=== PATIENT | male | born 2000 | race Caucasian/White ===

== ENCOUNTER 2020-04-14 14:48 | Emergency (ER) | payer OTHER, SELFPAY ==
--- NOTE | 2020-04-14 16:41 | RAD REPORT ---
EXAM DESCRIPTION: RAD - Tib Fib Right - 04/14/2020 4:33 pm CLINICAL HISTORY: Right leg pain FINDINGS: No fracture is seen
--- NOTE | 2020-04-14 17:17 | EDPHYS ---
Physician Documentation [facility] Name: Monster Martel Age: 20 yrs Sex: Male : 2000 Arrival Date: 04/14/2020 Time: 14:53 Bed 6 Private MD: ED Physician Hieu Sen HPI: 04/14 16:17 This 20 yrs old Male presents to ER via Ambulatory with complaints of Fall pm1 Injury, Leg Pain. 16:17 Details of fall: The patient fell from an upright position, while running. Onset: The pm1 symptoms/episode began/occurred just prior to arrival. Associated injuries: The patient sustained right esquivel. Severity of symptoms: in the emergency department the symptoms are unchanged. The patient has not experienced similar symptoms in the past. The patient has not recently seen a physician. Patient running and tripped on the grating in the ground and hit his right leg against a trash can. No headache, head injury, neck pain, LOC, back pain. Patient able to walk after injury. Historical: - Allergies: 14:57 No Known Allergies; ll1 - PMHx: 14:57 hydrocele; ll1 - PSHx: 14:57 None; ll1 - Immunization history:: Flu vaccine is up to date. - Social history:: Smoking status: Patient denies any tobacco usage or history of. ROS: 16:17 Constitutional: Negative for fever, chills, and weight loss, Cardiovascular: Negative pm1 for chest pain, palpitations, and edema, Respiratory: Negative for shortness of breath, cough, wheezing, and pleuritic chest pain, Back: Negative for injury and pain. 16:17 Skin: Negative for injury, rash, and discoloration, Neuro: Negative for headache, weakness, numbness, tingling, and seizure. 16:17 MS/extremity: Positive for pain, of the right esquivel, Negative for decreased range of motion, deformity. Exam: 16:17 Constitutional: This is a well developed, well nourished patient who is awake, alert, pm1 and in no acute distress. Head/Face: Normocephalic, atraumatic. Neck: Trachea midline, no thyromegaly or masses palpated, and no cervical lymphadenopathy. Supple, full range of motion without nuchal rigidity, or vertebral point tenderness. No Meningismus. 16:17 Skin: Warm, dry with normal turgor. Normal color with no rashes, no lesions, and no evidence of cellulitis. 16:17 Cardiovascular: Exam negative for acute changes, Rate: normal, Rhythm: regular, Pulses: no pulse deficits are appreciated. 16:17 Respiratory: Exam negative for acute changes, respiratory distress, shortness of breath. 16:17 Musculoskeletal/extremity: Extremities: grossly normal except: noted in the right esquivel: tenderness, There is no evidence of laceration, puncture. 16:17 Neuro: Exam negative for acute changes, Orientation: is normal, Mentation: is normal, Motor: is normal, moves all fours. Vital Signs: 14:57 BP 129 / 72; Pulse 63; Resp 16; Temp 98.6; Pulse Ox 97% ; Weight 58.97 kg; Height 6 ft. ll1 0 in. (182.88 cm); Pain 7/10; 16:35 BP 126 / 76; Pulse 60; Resp 15; Pulse Ox 99% on R/A; hb 17:30 BP 122 / 70; Pulse 61; Resp 16; Pulse Ox 99% on R/A; hb 14:57 Body Mass Index 17.63 (58.97 kg, 182.88 cm) ll1 MDM: 16:17 Patient medically screened. pm1 17:13 Data reviewed: vital signs. Counseling: I had a detailed discussion with the patient pm1 and/or guardian regarding: the historical points, exam findings, and any diagnostic results supporting the discharge/admit diagnosis, radiology results, to return to the emergency department if symptoms worsen or persist or if there are any questions or concerns that arise at home. 04/14 15:48 Order name: Tib Fib Right XRAY pm1 04/14 16:42 Order name: RAD; Complete Time: 17:24 EDMS Administered Medications: No medications were administered Disposition: 04/14/20 17:16 Discharged to Home. Impression: Contusion of left lower leg, Fall on same level from slipping, tripping and stumbling with subsequent striking against object. - Condition is Stable. - Discharge Instructions: Contusion. - Medication Reconciliation Form, Thank You Letter, Antibiotic Education, Prescription Opioid Use, Work release form form. - Follow up: Emergency Department; When: As needed; Reason: Recheck today's complaints, Continuance of care, Re-evaluation by your physician. Follow up: Private Physician; When: As needed; Reason: Worsening of condition. - Problem is new. - Symptoms have improved. Addendum: 04/15/2020 18:30 Co-signature as Attending Physician, Hieu Sen MD. m a2 Signatures: Dispatcher [employer] EDMS Jose Martin Donaldson NP FURNITURE BUILDER pm1 Shraddha Carpenter RN RN Hieu Sen MD MD ma2 Rm Fajardo RN RN ll1 Corrections: (The following items were deleted from the chart) 04/14 17:52 17:16 04/14/2020 17:16 Discharged to Home. Impression: Contusion of left lower leg; hb Fall on same level from slipping, tripping and stumbling with subsequent striking against object. Condition is Stable. Forms are Medication Reconciliation Form, Thank You Letter, Antibiotic Education, Prescription Opioid Use. Follow up: Emergency Department; When: As needed; Reason: Recheck today's complaints, Continuance of care, Re-evaluation by your physician. Follow up: Private Physician; When: As needed; Reason: Worsening of condition. Problem is new. Symptoms have improved. pm1
--- NOTE | 2020-04-14 17:17 | ER ---
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 Rolled over trash can ll1 and hit R leg on ground. Reports entire R leg pain now. Coronavirus screen: Client denies travel out of the [place] in the last 14 days. At this time, the client does not indicate any symptoms associated with coronavirus-19. Ebola Screen: Patient denies travel to an Ebola-affected area in the 21 days before illness onset. Initial Sepsis Screen: Does the patient meet any 2 criteria? No. Patient's initial sepsis screen is negative. Does the patient have a suspected source of infection? Yes: Bone or joint infection. Risk Assessment: Do you want to hurt yourself or someone else? Patient reports no desire to harm self or others. Onset of symptoms was April 14, 2020. 14:57 Method Of Arrival: Ambulatory ll1 14:57 Acuity: SOL 4 ll1 Historical: - Allergies: 14:57 No Known Allergies; ll1 - PMHx: 14:57 hydrocele; ll1 - PSHx: 14:57 None; ll1 - Immunization history:: Flu vaccine is up to date. - Social history:: Smoking status: Patient denies any tobacco usage or history of. Screenin:15 Abuse screen: Denies threats or abuse. Denies injuries from another. Nutritional sv screening: No deficits noted. Tuberculosis screening: No symptoms or risk factors identified. Fall Risk None identified. Assessment: 15:15 General: Appears in no apparent distress. uncomfortable, well developed, Behavior is sv calm, cooperative, appropriate for age. Pain: Complains of pain in right leg Pain currently is 7 out of 10 on a pain scale. Pain began 30 min ago. Is continuous. Neuro: Level of Consciousness is awake, alert, obeys commands, Oriented to person, place, time, situation. Respiratory: Respiratory effort is even, unlabored, Respiratory pattern is regular, symmetrical. Derm: Skin is pink, warm \T\ dry. 16:30 Reassessment: Patient appears in no apparent distress at this time. Patient and/or hb family updated on plan of care and expected duration. Pain level reassessed. Patient is alert, oriented x 3, equal unlabored respirations, skin warm/dry/pink. 17:35 Reassessment: Patient appears in no apparent distress at this time. Patient and/or hb family updated on plan of care and expected duration. Pain level reassessed. Patient is alert, oriented x 3, equal unlabored respirations, skin warm/dry/pink. Vital Signs: 14:57 BP 129 / 72; Pulse 63; Resp 16; Temp 98.6; Pulse Ox 97% ; Weight 58.97 kg; Height 6 ft. ll1 0 in. (182.88 cm); Pain 7/10; 16:35 BP 126 / 76; Pulse 60; Resp 15; Pulse Ox 99% on R/A; hb 17:30 BP 122 / 70; Pulse 61; Resp 16; Pulse Ox 99% on R/A; hb 14:57 Body Mass Index 17.63 (58.97 kg, 182.88 cm) ll1 ED Course: 14:53 Patient arrived in ED. mr 14:59 Triage completed. ll1 14:59 Arm band placed on Patient placed in an exam room, on a stretcher. ll1 15:08 Jose Martin Donaldson NP is PHCP. pm1 15:08 Hieu Sen MD is Attending Physician. pm1 15:08 Jelly Reyna, RN is Primary Nurse. sv 15:15 Patient has correct armband on for positive identification. Bed in low position. Call sv light in reach. Door closed. Head of bed elevated. 16:59 Tib Fib Right XRAY Sent. sv 17:51 No provider procedures requiring assistance completed. Patient did not have IV access hb during this emergency room visit. Administered Medications: No medications were administered Outcome: 17:16 Discharge ordered by . pm1 17:51 Discharged to home ambulatory. hb 17:51 Condition: stable 17:51 Discharge instructions given to patient, Instructed on discharge instructions, follow up and referral plans. medication usage, Demonstrated understanding of instructions, follow-up care, medications. 17:52 Patient left the ED. hb Signatures: Jelly Reyna RN RN sv [place], Ayah mr Anika, Jose Martin, VIGOUREUX PRINTER VIGOUREUX PRINTER pm1 Shraddha Carpenter, RN RN Rm Meléndez, OLIVER RN ll1
[2020-04-14 17:56] VITALS: TEMP 98.6
[2020-04-14 17:58] VITALS: O2SAT 99
[2020-04-14 17:59] VITALS: BP 122/70
== END 2020-04-14 17:52 | disposition home or self-care (01) ==
LOC: ER 14:48
DX: S80.11XA Contusion of right lower leg, initial encounter (principal); W01.198A Fall on same level from slipping, tripping and stumbling with subsequent striking against other object, initial encounter; Y93.89 Activity, other specified; Y92.9 Unspecified place or not applicable
CPT/HCPCS: 99283

== ENCOUNTER → 2023-03-31 | Emergency (ER) | payer OTHER ==
--- NOTE | 2023-03-31 19:12 | RAD REPORT ---
EXAM DESCRIPTION: US - Extremity Venous Uni Ltd - 03/31/2023 7:01 pm CLINICAL HISTORY: PAIN Leg swelling and edema. COMPARISON: No comparisons FINDINGS: Left lower extremity venous system was interrogated with Doppler technique. Normal flow, c ompressibility and augmentation was noted. There is no DVT present. IMPRESSION: No evidence of left lower extremity deep venous thrombosis.
--- NOTE | 2023-03-31 19:42 | ER ---
Nurse's Notes [facility] Name: Monster Martel Age: 23 yrs Sex: Male : 2000 Arrival Date: 03/31/2023 Time: 18:15 Bed IW9 Private MD: Diagnosis: Pain in left leg Presentation: 03/31 18:57 Chief complaint: Patient states: left leg pain that started last night , denies injury. iw Coronavirus screen: At this time, the client does not indicate any symptoms associated with coronavirus-19. Ebola Screen: Patient negative for fever greater than or equal to 101.5 degrees Fahrenheit, and additional compatible Ebola Virus Disease symptoms Patient denies exposure to infectious person. Patient denies travel to an Ebola-affected area in the 21 days before illness onset. No symptoms or risks identified at this time. Initial Sepsis Screen: Does the patient meet any 2 criteria? No. Patient's initial sepsis screen is negative. Does the patient have a suspected source of infection? No. Patient's initial sepsis screen is negative. Risk Assessment: Do you want to hurt yourself or someone else? Patient reports no desire to harm self or others. 18:57 Acuity: SOL 4 iw 19:17 Onset of symptoms was March 30, 2023. [facility] 19:17 Method Of Arrival: Ambulatory [facility] Triage Assessment: 19:17 General: Appears in no apparent distress. comfortable, Behavior is calm, cooperative, km8 appropriate for age. Pain: Complains of pain in left leg Pain currently is 8 out of 10 on a pain scale. EENT: No signs and/or symptoms were reported regarding the EENT system. Neuro: Level of Consciousness is awake, alert, obeys commands, Oriented to person, place, time, situation. Cardiovascular: Reports chest pain, shortness of breath, Capillary refill < 3 seconds Patient's skin is warm and dry. Respiratory: Airway is patent Respiratory effort is even, unlabored, Respiratory pattern is regular, symmetrical. GI: No signs and/or symptoms were reported involving the gastrointestinal system. : No signs and/or symptoms were reported regarding the genitourinary system. Derm: No signs and/or symptoms reported regarding the dermatologic system. Skin is intact, is healthy with good turgor, Skin is dry, Skin is pink, warm \T\ dry. normal, Skin temperature is warm. Musculoskeletal: Circulation, motion, and sensation intact. Range of motion: intact in all extremities, Reports pain in left leg Pain is 8 out of 10 on a pain scale. Historical: - Allergies: 18:59 No Known Allergies; iw - Home Meds: 18:59 None [Active]; iw - PMHx: 18:58 HYDROCELE; iw - PSHx: 18:59 None; iw - Immunization history:: Client reports receiving the 2nd dose of the Covid vaccine, Client reports receiving the Guy \T\ Guy single-dose vaccine. Flu vaccine is up to date. - Social history:: Smoking status: Patient denies any tobacco usage or history of. Patient/guardian denies using alcohol, street drugs. Screenin:15 [facility] ED Fall Risk Assessment (Adult) History of falling in the last 3 months, vc1 including since admission No falls in past 3 months (0 pts) Confusion or Disorientation No (0 pts) Intoxicated or Sedated No (0 pts) Impaired Gait No (0 pts) Mobility Assist Device Used No (0 pt) Altered Elimination No (0 pt) Score/Fall Risk Level 0 - 2 = Low Risk Oriented to surroundings, Maintained a safe environment, Educated pt \T\ family on fall prevention, incl call for assistance when getting out of bed. Abuse screen: Denies threats or abuse. Nutritional screening: No deficits noted. Tuberculosis screening: No symptoms or risk factors identified. Assessment: 20:15 Reassessment: No changes from previously documented assessment. Patient and/or family vc1 updated on plan of care and expected duration. Pain level reassessed. Patient is alert, oriented x 3, equal unlabored respirations, skin warm/dry/pink. Vital Signs: 19:16 BP 121 / 78; Pulse 69; Resp 16; Temp 98.5(O); Pulse Ox 100% on R/A; Weight 67.59 kg km8 (R); Height 5 ft. 11 in. (R); Pain 8/10; 19:16 Body Mass Index 20.78 (67.59 kg, 180.34 cm) km8 19:16 Pain Scale: Adult km8 ED Course: 18:16 Patient arrived in ED. rg4 18:20 Argelia Booth FNP-C is [facility]. kb 18:20 Nj Jimenez MD is Attending Physician. kb 18:58 Triage completed. iw 18:59 Arm band placed on. iw 19:03 US Extremity Venous Unilateral Ltd In Process Unspecified. EDMS 20:16 Patient has correct armband on for positive identification. placed in diagnostic chair vc1 for discharge. Provided Education on: Follow up if pain continues or worsens. 20:16 No provider procedures requiring assistance completed. Patient did not have IV access vc1 during this emergency room visit. Administered Medications: No medications were administered Medication: 20:16 VIS not applicable for this client. vc1 Outcome: 19:41 Discharge ordered by . kb 20:16 Discharged to home ambulatory, vc1 20:16 Condition: good 20:16 Discharge instructions given to patient, Instructed on discharge instructions, follow up and referral plans. medication usage, Demonstrated understanding of instructions, follow-up care, medications, Prescriptions given X 2, 20:17 Patient left the ED. vc1 Signatures: Dispatcher [employer] EDMS Argelia Booth, POULTRY SCIENTIST-C POULTRY SCIENTIST-CkLuz Elena Napoles, RN RN Aminah Ramesh rg4 Lisa Lopez RN RN vc1 Reema Zabala RN RN km8
--- NOTE | 2023-03-31 19:42 | EDPHYS ---
Physician Documentation [facility] Name: Monster Martel Age: 23 yrs Sex: Male : 2000 Arrival Date: 03/31/2023 Time: 18:15 Bed IW9 Private MD: ED Physician Nj Jimenez HPI: 03/31 19:48 This 23 yrs old Male presents to ER via Ambulatory with complaints of Leg Pain. kb 19:48 Patient reports left lateral leg pain that started overnight. Denies injury or trauma. kb States his family has a history of DVTs so he was concerned about a blood clot. Reports pain is from about mid thigh to just above ankle.. Historical: - Allergies: 18:59 No Known Allergies; iw - Home Meds: 18:59 None [Active]; iw - PMHx: 18:58 HYDROCELE; iw - PSHx: 18:59 None; iw - Immunization history:: Client reports receiving the 2nd dose of the Covid vaccine, Client reports receiving the Guy \T\ Guy single-dose vaccine. Flu vaccine is up to date. - Social history:: Smoking status: Patient denies any tobacco usage or history of. Patient/guardian denies using alcohol, street drugs. ROS: 19:47 Constitutional: Negative for fever, chills, and weight loss, kb 19:47 MS/extremity: Positive for pain, of the left leg, 19:47 All other systems are negative, Exam: 19:47 Constitutional: This is a well developed, well nourished patient who is awake, alert, kb and in no acute distress. Head/Face: Normocephalic, atraumatic. ENT: Moist Mucous membranes Cardiovascular: Regular rate Respiratory: Respirations even and unlabored. No increased work of breathing. Talking in full sentences Abdomen/GI: Soft, non-tender. No distention Skin: Warm, dry with normal turgor. Normal color. MS/ Extremity: Pulses equal, no cyanosis. Neurovascular intact. Full, normal range of motion. Neuro: Awake and alert, GCS 15, oriented to person, place, time, and situation. Moves all extremities. Normal gait. Vital Signs: 19:16 BP 121 / 78; Pulse 69; Resp 16; Temp 98.5(O); Pulse Ox 100% on R/A; Weight 67.59 kg km8 (R); Height 5 ft. 11 in. (R); Pain 810; 19:16 Body Mass Index 20.78 (67.59 kg, 180.34 cm) [facility] 19:16 Pain Scale: Adult km8 MDM: 18:27 Patient medically screened. kb 19:49 Differential diagnosis: abrasion, tendonitis, dvt. Data reviewed: vital signs, nurses kb notes. Counseling: I had a detailed discussion with the patient and/or guardian regarding the historical points, exam findings, and any diagnostic results supporting the discharge/admit diagnosis, radiology results, the need for outpatient follow up, a family practitioner, to return to the emergency department if symptoms worsen or persist or if there are any questions or concerns that arise at home. 03/31 18:34 Order name: US Extremity Venous Unilateral Ltd; Complete Time: 19:14 kb Administered Medications: No medications were administered Disposition Summary: 03/31/23 19:41 Discharge Ordered Notes: Location: Home kb Condition: Stable kb Diagnosis - Pain in left leg kb Followup: kb - With: Emergency Department - When: As needed - Reason: Worsening of condition Followup: kb - With: Private Physician - When: 2 - 3 days - Reason: Recheck today's complaints, Continuance of care, Re-evaluation by your physician Discharge Instructions: - Discharge Summary Sheet kb - Musculoskeletal Pain kb Forms: - Medication Reconciliation Form kb - Thank You Letter kb - Antibiotic Education kb - Prescription Opioid Use kb - Patient Portal Instructions kb - Leadership Thank You Letter kb Prescriptions: - Ibuprofen 600 mg Oral Tablet - take 1 tablet ORAL route every 6 hours As needed take with food; 30 tablet; kb Refills: 0, Product Selection Permitted - orphenadrine citrate 100 mg Oral Tablet Sustained Release - take 1 tablet ORAL route 2 times per day As needed; 20 tablet; Refills: 0, kb Product Selection Permitted Signatures: Dispatcher [employer] Argelia Rhodes, KIMBERLY GAY-Luz Elena De León, OLIVER RN Reema Zabala RN RN km8
[2023-04-01 00:27] VITALS: BP 121/78; TEMP 98.5; O2SAT 100
== END ==
LOC: ER 18:15
DX: M79.605 Pain in left leg (principal)
CPT/HCPCS: 93971

== ENCOUNTER 2023-10-20 20:01 | Emergency (ER) | payer OTHER ==
[2023-10-20] MEDS ORDERED: NA CHLORIDE 0.9% 1,000 ML ONE (21:34)
[2023-10-20 21:58] LABS: Absolute Eosinophils 0.1 K/uL (0-0.5); Absolute Lymphocytes (CBC) 1.4 K/uL (0.7-4.9); Absolute Monocytes 0.6 K/uL (0.1-1.3); Absolute Neutrophil 4.5 K/uL (1.8-8.0); Basophils % 0.7 % (0-1.3); Eosinophils % 1.5 % (0-4.4); Hematocrit 44.8 % (39.6-49.0); Hemoglobin 15.3 g/dL (13.6-17.9); Lymphocytes % 21.2 % (15.3-44.8); MCH 28.1 pg (27.0-35.0); MCHC 34.1 g/dL (32.0-36.0); MCV 82.4 fL (80-100); MPV 8.1 fL (7.6-11.3); Monocytes % 9.2 % (3.3-12.3); Neutrophils % 67.4 % (41.7-73.7); Nucleated Red Blood Cells % 0.2 % (0-0); Platelets 227 thou/uL (152-406); RBC Red Blood Cell Count 5.43 M/uL (4.33-5.43); Red Cell Distribution Width 12.4 % (12.1-15.2)
[2023-10-20 22:36] LABS: Albumin 4.3 g/dL (3.4-5.0); Albumin/Globulin Ratio 1.1 (1.1-1.8); Anion Gap 7.1 mEq/L (5.0-15.0); Bilirubin Direct 0.2 mg/dL (0-0.2); Bilirubin Indirect, Calculated 0.5 mg/dL (0.2-0.8); Bilirubin Total 0.7 mg/dL (0.2-1.0); Globulin 3.8 g/dL (2.3-3.5); Magnesium 2.3 mg/dL (1.6-2.4); Potassium 4.1 mEq/L (3.5-5.1); Protein, Total 8.1 g/dL (6.4-8.2); Troponin High Sensitivity 3.7 pg/mL (<58.9)
--- NOTE | 2023-10-20 23:09 | ER ---
Nurse's Notes [facility] Name: Monster Martel Age: 23 yrs Sex: Male : 2000 Arrival Date: 10/20/2023 Time: 20:01 Bed 15 Private MD: Diagnosis: Syncope Near Presentation: 10/19 20:45 Chief complaint: Patient states: Was on a roof approximately 45 minutes [employer] and fell. cm10 Pt states that he caught the ladder so he did not land on the ground. Pt complaining of head pain, dizziness and nausea. Coronavirus screen: Client denies travel out of the [place] in the last 14 days. At this time, the client does not indicate any symptoms associated with coronavirus-19. Ebola Screen: Patient denies travel to an Ebola-affected area in the 21 days before illness onset. No symptoms or risks identified at this time. Initial Sepsis Screen: Does the patient meet any 2 criteria? No. Patient's initial sepsis screen is negative. Does the patient have a suspected source of infection? No. Patient's initial sepsis screen is negative. Risk Assessment: Do you want to hurt yourself or someone else? Patient reports no desire to harm self or others. Onset of symptoms was October 20, 2023. 20:45 Method Of Arrival: Ambulatory cm10 20:45 Acuity: SOL 3 cm10 22:30 Care prior to arrival: None. al5 Triage Assessment: 20:47 General: Appears in no apparent distress. comfortable, Behavior is calm, cooperative. cm10 Pain: Complains of pain in head Pain currently is 8 out of 10 on a pain scale. Quality of pain is described as aching, Is intermittent. Neuro: No deficits noted. Level of Consciousness is awake, alert, obeys commands, Oriented to person, place, time, situation, Appropriate for age. Neuro: Reports dizziness, headache. Respiratory: No deficits noted. Airway is patent Respiratory effort is even, unlabored, Respiratory pattern is regular, symmetrical. Historical: - Allergies: 20:47 No Known Allergies; cm10 - PMHx: 20:47 HYDROCELE; cm10 - Immunization history:: Adult Immunizations up to date. - Infectious Disease History:: Denies. - Immunization history: Last tetanus immunization: - up to date. - Social history:: Smoking status: Patient denies any tobacco usage or history of. Screenin:[address] [facility] ED Fall Risk Assessment (Adult) History of falling in the last 3 months, al5 including since admission No falls in past 3 months (0 pts) Confusion or Disorientation No (0 pts) Intoxicated or Sedated No (0 pts) Impaired Gait No (0 pts) Mobility Assist Device Used No (0 pt) Altered Elimination No (0 pt) Score/Fall Risk Level 0 - 2 = Low Risk Oriented to surroundings, Maintained a safe environment, Hourly rounding (assess needs \T\ fall precautionary measures) done. Abuse screen: Denies threats or abuse. Denies injuries from another. Nutritional screening: No deficits noted. Tuberculosis screening: No symptoms or risk factors identified. Primary Survey: 21:10 NO uncontrolled hemorrhage observed. Breathing/Chest: Spontaneous respiratory effort, al5 equal unlabored respirations, breath sounds clear bilaterally, regular pattern, symmetrical chest rise and fall. Respiratory effort: spontaneous, Respiratory pattern: regular, Chest inspection: symmetrical rise and fall of the chest. Circulation: No external hemorrhage present. Regular and strong central pulse, skin warm/dry/normal color. Skin color: pink, Skin temperature: warm, Cardiac rhythm: sinus rhythm. Disability Pupils are equal, round, reactive to light and accommodation. Client is alert. Exposure/Environment: A warming method has been applied: A warm blanket has been provided to the patient. 22:29 Reassessment Breathing: Spontaneous respiratory effort, equal unlabored respirations, al5 breath sounds clear bilaterally, regular pattern with symmetrical chest rise and fall. Respiratory effort Spontaneous Respiratory pattern Regular Circulation: No external hemorrhage noted. Regular and strong central pulse, skin warm/dry/normal color. Heart rhythm Sinus rhythm Color [place] Disability: Pupils Pupils are equal, round, reactive to light and accomodation. Alert. Secondary Survey: 21:10 HEENT: No deficits noted. Gastrointestinal: No deficits noted. : No deficits noted. al5 Musculoskeletal: No deficits noted. Assessment: 21:10 General: Appears in no apparent distress. comfortable, Behavior is calm, cooperative. al5 Pain: Denies pain. Neuro: No deficits noted. Level of Consciousness is awake, alert, obeys commands, Oriented to person, place, time, situation. Neuro: Reports that he had a near syncopal episode this afternoon while on a ladder, denies any symptoms at this time.. Cardiovascular: Capillary refill < 3 seconds Patient's skin is warm and dry. Respiratory: Airway is patent Respiratory effort is even, unlabored, Respiratory pattern is regular, symmetrical. GI: No signs and/or symptoms were reported involving the gastrointestinal system. Abdomen is flat, non-distended. : No signs and/or symptoms were reported regarding the genitourinary system. EENT: No signs and/or symptoms were reported regarding the EENT system. Derm: Skin is intact, Skin is pink, warm \T\ dry. normal. Musculoskeletal: No signs and/or symptoms reported regarding the musculoskeletal system. Vital Signs: 20:45 BP 132 / 68; Pulse 76; Resp 16; Temp 97.4(TE); Pulse Ox 99% ; Weight 68.04 kg; Height 5 cm10 ft. 11 in. ; Pain 7/10; 21:19 BP 117 / 96; Pulse 68; Resp 16; Pulse Ox 100% on R/A; al5 21:30 BP 122 / 82; Pulse 78; Resp 16; Pulse Ox 100% on R/A; al5 21:45 BP 125 / 81; Pulse 66; Resp 16; Pulse Ox 100% on R/A; al5 22:00 BP 123 / 83; Pulse 68; Resp 16; Pulse Ox 100% on R/A; al5 22:30 BP 115 / 72; Pulse 62; Resp 16; Pulse Ox 100% on R/A; al5 23:00 BP 113 / 70; Pulse 64; Resp 16; Pulse Ox 100% on R/A; al5 20:45 Body Mass Index 20.92 (68.04 kg, 180.34 cm) cm10 20:45 Pain Scale: Adult cm10 Erika Coma Score: 21:11 Eye Response: spontaneous(4). Motor Response: obeys commands(6). Verbal Response: al5 oriented(5). Total: 15. Trauma Score (Adult): 21:11 Eye Response: spontaneous(1); Verbal Response: oriented(1); Motor Response: obeys al5 commands(2); Systolic BP: > 89 mm Hg(4); Respiratory Rate: 10 to 29 per min(4); [place] Score: 15; Trauma Score: 12 ED Course: 20:18 Patient arrived in ED. mr 20:25 Argelia Booth FNP-C is [facility]. kb 20:25 Janine Rosas MD is Attending Physician. kb 20:46 Triage completed. cm10 20:48 Arm band placed on Patient placed in waiting room. cm10 21:10 Patient has correct armband on for positive identification. Bed in low position. Call al5 light in reach. Side rails up X 1. 21:10 Provided Education on: processes and procedures. al5 21:35 Maryuri Hernandes, RN is Primary Nurse. al5 21:45 EKG done, by ED staff, reviewed by Argelia HARRIS. oe 21:47 Inserted saline lock: 20 gauge in right antecubital area, using aseptic technique. oe Blood collected. Flushed with 10 mL NS. 22:29 No provider procedures requiring assistance completed. al5 22:30 O2 via room air. al5 22:31 Thermoregulation: warm blanket given to patient. al5 23:36 IV discontinued, intact, bleeding controlled, No redness/swelling at site. Pressure al5 dressing applied. Administered Medications: 21:52 Drug: NS 0.9% IV 1000 ml IV at 1000 ml once Route: IV; Rate: 1000 ml; Site: right al5 antecubital; 23:36 Follow up: Response: No adverse reaction; IV Status: Completed infusion; IV Intake: al5 1000ml Medication: 22:30 VIS not applicable for this client. al5 Intake: 23:36 IV: 1000ml; Total: 1000ml. al5 Outcome: 23:09 Discharge ordered by . kb 23:36 Discharged to home ambulatory, al5 23:36 Condition: good 23:36 Discharge instructions given to patient, Instructed on discharge instructions, follow up and referral plans. Demonstrated understanding of instructions, follow-up care, 23:36 Patient's length of stay was not longer than 2 hours. 23:37 Patient left the ED. al5 Signatures: Argelia Booth FNP-C PROJECT MANAGEMENT DIRECTOR-Ckb MadisonAyah, Reg Reg mr Ortiz, Olimpia Thapa RN RN cm10 Maryuri Hernandes, OLIVER RN al5 Corrections: (The following items were deleted from the chart) 20:51 20:45 Chief complaint: Patient states: Fell off a roof today. Pt states that he caught cm10 the ladder so he did not land on the ground. Pt complaining of head pain, dizziness and nausea. cm10 21:48 21:47 Inserted oe oe : 22:25 General: Appears in no apparent distress. comfortable, Behavior is calm, al5 cooperative, al5 22:25 Pain: Denies pain. al5 al5 : 22:25 Neuro: Level of Consciousness is awake, alert, obeys commands, Oriented to al5 person, place, time, situation, al5 : 22:25 Cardiovascular: Capillary refill < 3 seconds Patient's skin is warm and dry. al5 al5 : 22:25 Respiratory: Airway is patent Respiratory effort is even, unlabored, Respiratory al5 pattern is regular, symmetrical, al5 : 22:25 GI: No signs and/or symptoms were reported involving the gastrointestinal system. al5 Abdomen is flat, non-distended, al5 22:25 : No signs and/or symptoms were reported regarding the genitourinary system. al5al5 : 22:25 EENT: No signs and/or symptoms were reported regarding the EENT system. al5 al5 : 22:25 Derm: Skin is intact, Skin is pink, warm \T\ dry. normal, al5 al5 : 22:25 Musculoskeletal: No signs and/or symptoms reported regarding the musculoskeletal al5 system. al5
--- NOTE | 2023-10-20 23:09 | EDPHYS ---
Physician Documentation [facility] Name: Monster Martel Age: 23 yrs Sex: Male : 2000 Arrival Date: 10/20/2023 Time: 20:01 Bed 15 Private MD: ED Physician Janine Rosas HPI: 10/19 23:05 This 23 yrs old Male presents to ER via Ambulatory with complaints of Fall Injury, kb Dizziness, Nausea. 23:05 Patient is a 23-year-old male who presents for near syncopal episode that occurred kb about 45 minutes prior to arrival. States he was on top of a roof doing an inspection when his vision went dark causing him to fall on the roof. Denies falling off of the roof. Denies any injuries. States he has been working outside all day and has not drink any water. States he is feeling better at this time.. Historical: - Allergies: 20:47 No Known Allergies; cm10 - PMHx: 20:47 HYDROCELE; cm10 - Immunization history:: Adult Immunizations up to date. - Infectious Disease History:: Denies. - Immunization history: Last tetanus immunization: - up to date. - Social history:: Smoking status: Patient denies any tobacco usage or history of. ROS: 21:42 Constitutional: As per HPI kb Exam: 21:42 Constitutional: This is a well developed, well nourished patient who is awake, alert, kb and in no acute distress. Head/Face: Normocephalic, atraumatic. ENT: Moist Mucous membranes Cardiovascular: Regular rate Respiratory: Respirations even and unlabored. No increased work of breathing. Talking in full sentences Abdomen/GI: Soft, non-tender. No distention Skin: Warm, dry with normal turgor. Normal color. MS/ Extremity: Pulses equal, no cyanosis. Neurovascular intact. Full, normal range of motion. Neuro: Awake and alert, GCS 15, oriented to person, place, time, and situation. Moves all extremities. Normal gait. 21:42 ECG was reviewed by the Attending Physician. Vital Signs: 20:45 BP 132 / 68; Pulse 76; Resp 16; Temp 97.4(TE); Pulse Ox 99% ; Weight 68.04 kg; Height 5 cm10 ft. 11 in. ; Pain 7/10; 21:19 BP 117 / 96; Pulse 68; Resp 16; Pulse Ox 100% on R/A; al5 21:30 BP 122 / 82; Pulse 78; Resp 16; Pulse Ox 100% on R/A; al5 21:45 BP 125 / 81; Pulse 66; Resp 16; Pulse Ox 100% on R/A; al5 22:00 BP 123 / 83; Pulse 68; Resp 16; Pulse Ox 100% on R/A; al5 22:30 BP 115 / 72; Pulse 62; Resp 16; Pulse Ox 100% on R/A; al5 23:00 BP 113 / 70; Pulse 64; Resp 16; Pulse Ox 100% on R/A; al5 20:45 Body Mass Index 20.92 (68.04 kg, 180.34 cm) cm10 20:45 Pain Scale: Adult cm10 Erika Coma Score: 21:11 Eye Response: spontaneous(4). Motor Response: obeys commands(6). Verbal Response: al5 oriented(5). Total: 15. Trauma Score (Adult): 21:11 Eye Response: spontaneous(1); Verbal Response: oriented(1); Motor Response: obeys al5 commands(2); Systolic BP: > 89 mm Hg(4); Respiratory Rate: 10 to 29 per min(4); [place] Score: 15; Trauma Score: 12 MDM: 20:25 Patient medically screened. kb 23:05 Data reviewed: vital signs, nurses notes. kb 23:05 Differential diagnosis: near syncope, dehydration, heat related illness. Test kb considered but Not performed: CT: ct head considered but pt has no neuro deficits, did not hit head. Counseling: I had a detailed discussion with the patient and/or guardian regarding the historical points, exam findings, and any diagnostic results supporting the discharge/admit diagnosis, lab results, radiology results, the need for outpatient follow up, a family practitioner, to return to the emergency department if symptoms worsen or persist or if there are any questions or concerns that arise at home. 23:09 ED course: Pt states he is feeling much better after treatment and is ready to go home. kb . 10/19 21:00 Order name: Basic Metabolic Panel; Complete Time: 22:41 kb 10/19 21:00 Order name: CBC with Diff; Complete Time: 22:00 kb 10/19 21:00 Order name: Hepatic Function; Complete Time: 22:41 kb 10/19 21:00 Order name: Magnesium; Complete Time: 22:41 kb 10/19 21:00 Order name: Troponin High Sensitivity; Complete Time: 22:41 kb 10/19 21:00 Order name: CPK; Complete Time: 22:41 kb 10/19 21:00 Order name: EKG; Complete Time: 21:01 kb 08 21:00 Order name: EKG - Nurse/Tech; Complete Time: 21:38 kb 10/19 21:00 Order name: IV Saline Lock; Complete Time: 21:52 kb 10/19 21:00 Order name: Labs collected and sent; Complete Time: 21:52 kb 10/19 21:00 Order name: NPO; Complete Time: :52 kb 10/19 21:00 Order name: O2 Per Protocol; Complete Time: 21:38 kb 10/19 21:00 Order name: O2 Sat Monitoring; Complete Time: 21:38 kb EC:42 Rate is 75 beats/min. Rhythm is regular. QRS [place] is Normal. GA interval is normal at kb 120 msec. QRS interval is normal at 96 msec. QT interval is normal at 422 msec. Administered Medications: :52 Drug: NS 0.9% IV 1000 ml IV at 1000 ml once Route: IV; Rate: 1000 ml; Site: right al5 antecubital; 23:36 Follow up: Response: No adverse reaction; IV Status: Completed infusion; IV Intake: al5 1000ml Disposition Summary: 10/20/23 23:09 Discharge Ordered Notes: Location: Home kb Condition: Stable kb Diagnosis - Syncope Near kb Followup: kb - With: Emergency Department - When: As needed - Reason: Worsening of condition Followup: kb - With: Private Physician - When: 2 - 3 days - Reason: Recheck today's complaints, Continuance of care, Re-evaluation by your physician Discharge Instructions: - Discharge Summary Sheet kb - Near-Syncope, [id number] kb Forms: - Medication Reconciliation Form kb - Antibiotic Education kb - Prescription Opioid Use kb - Patient Portal Instructions kb - Leadership Thank You Letter kb Signatures: Dispatcher [employer] Argelia Rhodes FNP-C FNP-Ckb Martinez, Clarissa RN RN cm10 Maryuri Hernandes RN RN al5 Corrections: (The following items were deleted from the chart) 23:36 21:00 Orthostatics ordered. kb al5
[2023-10-21 01:06] VITALS: TEMP 97.4
[2023-10-21 01:12] VITALS: O2SAT 100
[2023-10-21 01:22] VITALS: BP 113/70
--- NOTE | 2023-10-21 13:05 | EKG ---
Test Date: 2023-10-20 Test Time: 21:34:43 Toy Electric Train Repairer: SAV MEASUREMENT RESULTS: Intervals: Rate: 75 AK: 120 QRSD: 96 QT: 378 QTc: 422 [place]: P: 82 AK: 120 QRS: 94 T: 69 INTERPRETIVE STATEMENTS: Normal sinus rhythm Rightward axis Incomplete right bundle branch block Borderline ECG No previous ECG available for comparison Electronically Signed On 10-21-23 13:04:57 CDT by Jaylan Salinas
== END 2023-10-20 23:37 | disposition home or self-care (01) ==
LOC: ER 20:01
DX: R55 Syncope and collapse (principal)
CPT/HCPCS: 36415; 80048; 80076; 82550; 83735; 84484; 85025; 93005; J7030

== ENCOUNTER 2024-02-08 11:32 | Emergency (ER) | payer OTHER ==
[2024-02-08] MEDS ORDERED: ONDANSETRON 4 MG/2 ML VIAL ONE (11:48)
[2024-02-08] MEDS ORDERED: ACETAMINOPHEN 500 MG TAB ONE (11:48)
[2024-02-08] MEDS ORDERED: NA CHLORIDE 0.9% 1,000 ML ONE (11:48)
[2024-02-08] MEDS ORDERED: FAMOTIDINE 20 MG/2 ML VIAL IV ONE (11:48)
[2024-02-08 12:31] LABS: Absolute Lymphocytes (CBC) 0.6 K/uL (0.7-4.9); Absolute Monocytes 0.4 K/uL (0.1-1.3); Absolute Neutrophil 7.5 K/uL (1.8-8.0); Basophils % 0.4 % (0-1.3); Eosinophils % 0.4 % (0-4.4); Hematocrit 48.5 % (39.6-49.0); Hemoglobin 16.3 g/dL (13.6-17.9); Lymphocytes % 7.4 % (15.3-44.8); MCHC 33.6 g/dL (32.0-36.0); MCV 83.4 fL (80-100); MPV 8.2 fL (7.6-11.3); Monocytes % 4.7 % (3.3-12.3); Neutrophils % 87.1 % (41.7-73.7); Platelets 236 thou/uL (152-406); RBC Red Blood Cell Count 5.82 M/uL (4.33-5.43); Red Cell Distribution Width 12.7 % (12.1-15.2)
--- NOTE | 2024-02-08 12:36 | RAD REPORT ---
EXAMINATION: CT ABDOMEN AND PELVIS WITH CONTRAST CLINICAL INDICATION: ABD PAIN TECHNIQUE: CT abdomen and pelvis was performed, after the administration of IV contrast, [facility]. Axial, sagittal and coronal reconstructions were obtained. One or more of the following dose reduction techniques were used: Automated exposure control, adjustment of the mA and k V according to patient size, and iterative reconstruction. Unless otherwise specified, incidental findings do not require dedicated imaging follow-up. COMPARISON: No prior exam. FINDINGS: LOWER CHEST: The visualized lung bases are clear. LIVER: Normal in size and contour. No focal lesion. Grossly unremarkable gallbladder. SPLEEN: Normal size. No focal lesion. PANCREAS: No mass, ductal dilation, or jalen-pancreatic fluid. ADRENALS: Normal; no mass. KIDNEYS: Normal size and contour. No hydronephrosis. GASTROINTESTINAL TRACT: No evidence of free air, significant intra-abdominal free fluid, bowel obstru ction or abscess. APPENDIX: Normal appendix. LYMPH NODES: No lymphadenopathy. MUSCULOSKELETAL: No acute or suspicious osseous abnormality. ADDITIONAL FINDINGS: Large scrotal hydroceles noted. IMPRESSION: No acute or concerning abnormalities seen in the abdomen or pelvis. Large scrotal hydroceles. Consider follow-up testicular sonography.
[2024-02-08 12:39] LABS: Albumin 4.6 g/dL (3.4-5.0); Albumin/Globulin Ratio 1.1 (1.1-1.8); Bilirubin Total 1.5 mg/dL (0.2-1.0); Globulin 4.2 g/dL (2.3-3.5); Protein, Total 8.8 g/dL (6.4-8.2)
--- NOTE | 2024-02-08 13:29 | RAD REPORT ---
EXAM: Right upper quadrant ultrasound. CLINICAL HISTORY: Abdominal pain COMPARISON: None FINDINGS: A gallstone is not seen. Gallbladder wall not thickened. Biliary tree normal caliber IMPRESSION: No significant abnormalities displayed
--- NOTE | 2024-02-08 13:32 | EDPHYS ---
Physician Documentation [facility] Name: Monster Martel Age: 23 yrs Sex: Male : 2000 Arrival Date: 02/08/2024 Time: 11:32 Bed 5 Private MD: ED Physician Riccardo Herr HPI: 02/07 12:04 This 23 yrs old Male presents to ER via EMS with complaints of Nausea/Vomiting. rn 12:04 The patient presents to the emergency department with nausea, vomiting, abdominal pain. rn Onset: The symptoms/episode began/occurred last night. Possible causes: unknown. The symptoms are aggravated by nothing. The symptoms are alleviated by nothing. Associated signs and symptoms: Pertinent positives: abdominal pain, nausea, vomiting, Pertinent negatives: fever. Severity of symptoms: At their worst the symptoms were moderate in the emergency department the symptoms are unchanged. The patient has not experienced similar symptoms in the past. Patient reports nausea/vomiting/abdominal pain that began last night. Associated with fever and chills. Reports ate pizza last night and got sick shortly after. Also reports mild diarrhea. First episode of emesis did not have blood but next 2 episodes had small amount of bright red blood. No blood in stool. No trauma.. Historical: - Allergies: 11:35 No Known Allergies; ap3 - Home Meds: 11:35 Zoloft Oral [Active]; ap3 - PMHx: 11:35 Anxiety; HYDROCELE; ap3 - Immunization history:: Adult Immunizations unknown. - Infectious Disease History:: Denies. - Social history:: Smoking status: unknown. - Family history:: not pertinent. - Hospitalizations: : No recent hospitalization is reported. ROS: 12:04 Constitutional: Positive for fever and chills Cardiovascular: Negative for chest pain, rn palpitations, and edema, Respiratory: Negative for shortness of breath, cough, wheezing, and pleuritic chest pain, Abdomen/GI: Positive for abdominal pain with nausea and vomiting MS/Extremity: Negative for injury and deformity, Skin: Negative for injury, rash, and discoloration, Neuro: Negative for headache, weakness, numbness, tingling, and seizure, Exam: 12:04 Constitutional: This is a well developed, well nourished patient who is awake, alert, rn and in no acute distress. ENT: dry MM Cardiovascular: Tachycardic, regular. No pulse deficits. Respiratory: No increased work of breathing, no retractions or nasal flaring. Abdomen/GI: soft, +no focal tenderness or rebound MS/ Extremity: Pulses equal, no cyanosis. Neuro: Awake and alert, GCS 15 Vital Signs: 11:33 BP 110 / 81; Pulse 106; Resp 18; Temp 102.1; Pulse Ox 99% on R/A; Weight 68.04 kg; ap3 Height 5 ft. 11 in. ; Pain 7/10; 12:11 BP 115 / 80; Pulse 84; Resp 18; Pulse Ox 100% on R/A; ap3 13:14 BP 126 / 70; Pulse 74; Resp 18; Pulse Ox 98% on R/A; ap3 13:22 Temp 99.6(O); ap3 11:33 Body Mass Index 20.92 (68.04 kg, 180.34 cm) ap3 11:33 Pain Scale: Adult ap3 MDM: 11:33 Medical Screening Exam initiated rn 13:31 Differential diagnosis: Nonspecific abd pain, gastritis, cholecystitis, pancreatitis, rn appendicitis, diverticulitis, viral gastroenteritis, gastroenteritis. Data reviewed: vital signs, nurses notes, lab test result(s), radiologic studies, CT scan, ultrasound, and as a result, I will discharge patient. Counseling: I had a detailed discussion with the patient and/or guardian regarding the historical points, exam findings, and any diagnostic results supporting the discharge/admit diagnosis, lab results, radiology results, the need for outpatient follow up, to return to the emergency department if symptoms worsen or persist or if there are any questions or concerns that arise at home. Response to treatment: the patient's symptoms have markedly improved after treatment, and as a result, I will discharge patient. Special discussion: Based on the patient's Hx, exam, and Dx evaluation, there is no indication for emergent surgery or inpatient Tx. It is understood by the patient/guardian that if the Sx's persist or worsen they need to return immediately for re-evaluation. I discussed with the patient/guardian in detail that at this point there is no indication for admission to the hospital. It is understood, however, that if the symptoms persist or worsen the patient needs to return immediately for re-evaluation. 02/07 11:39 Order name: CBC with Diff rn 02/07 11:39 Order name: CMP; Complete Time: 12:56 rn 02/07 11:39 Order name: Lipase; Complete Time: 12:56 rn 02/07 11:39 Order name: Flu; Complete Time: 12:56 rn 02/07 11:39 Order name: CT Abd/Pelvis - IV Contrast Only; Complete Time: 12:56 rn 02/07 13:01 Order name: US Abdomen Limited; Complete Time: 13:31 rn 02/07 11:39 Order name: IV Saline Lock; Complete Time: 12:07 rn 02/07 11:39 Order name: Labs collected and sent; Complete Time: 12:07 rn Administered Medications: 12:07 Not Given (Patient Refused): [id number] mg IVP once; dilute with 10 mL 0.9% NaCl; ap3 give over 2 minutes 12:07 Drug: Acetaminophen PO 1000 mg PO once Route: PO; ap3 14:09 Follow up: Response: No adverse reaction; Temperature is decreased ap3 12:08 Not Given (Patient Refused): ondansetron 4 mg IVP once; over 2 minutes ap3 12:08 Drug: NS 0.9% IV 1000 ml IV at 1 bolus Per protocol; to be given as a bolus over 60 ap3 minutes Route: IV; Rate: 1 bolus; Site: right forearm; 14:10 Follow up: IV Status: Completed infusion; IV Intake: 1000ml ap3 Disposition Summary: 02/08/24 13:32 Discharge Ordered Notes: Location: Home rn Problem: new rn Symptoms: have improved rn Condition: Stable rn Diagnosis - Fever, unspecified rn - Nausea with vomiting, unspecified rn Followup: rn - With: Private Physician - When: As needed - Reason: Recheck today's complaints, Re-evaluation by your physician Discharge Instructions: - Discharge Summary Sheet rn - Fever, Adult rn - Nehal-Mccollum Syndrome rn - Nausea and Vomiting, Adult rn Forms: - Medication Reconciliation Form rn - Antibiotic oil burner technician - Prescription Opioid Use rn - Patient Portal Instructions rn - Leadership Thank You Letter rn Prescriptions: - ondansetron 4 mg Oral Tablet,disintegrating - take 1 tablet ORAL route every 8 hours As needed; 12 tablet; Refills: 0, rn Product Selection Permitted - Augmentin 875-125 mg Oral Tablet - take 1 tablet ORAL route every 12 hours for 10 days; 20 tablet; Refills: 0, rn Product Selection Permitted Signatures: Dispatcher [employer] EDRiccardo Doshi MD MD rn Prokisch, Amanda, RN RN ap3 Corrections: (The following items were deleted from the chart) 12:11 12:04 Constitutional: This is a well developed, well nourished patient who is awake, rn alert, and in no acute distress. Cardiovascular: Tachycardic, regular. No pulse deficits. Respiratory: Lungs have equal breath sounds bilaterally, clear to auscultation and percussion. No rales, rhonchi or wheezes noted. No increased work of breathing, no retractions or nasal flaring. Abdomen/GI: Soft, non-tender, with normal bowel sounds. No distension or tympany. No guarding or rebound. No evidence of tenderness throughout. rn
--- NOTE | 2024-02-08 13:32 | ER ---
Nurse's Notes [facility] Name: Monster Martel Age: 23 yrs Sex: Male : 2000 Arrival Date: 02/08/2024 Time: 11:32 Bed 5 Private MD: Diagnosis: Fever, unspecified;Nausea with vomiting, unspecified Presentation: 02/07 11:33 Chief complaint: Patient states: he has been having vomiting for approx 4 days. patient ap3 also complains of diffuse abdominal pain of which he rates a 7/10 on the pain scale at this time. Coronavirus screen: Client presents with at least one sign or symptom that may indicate coronavirus-19. Ebola Screen: No symptoms or risks identified at this time. Initial Sepsis Screen: Does the patient meet any 2 criteria? Temp <36.0*C (96.8*F)) or > 38.3*C (100.9*F). HR > 90 bpm. Yes Does the patient have a suspected source of infection? No. Patient's initial sepsis screen is negative. Risk Assessment: Do you want to hurt yourself or someone else? Patient reports no desire to harm self or others. Onset of symptoms was February 04, 2024. 11:33 Method Of Arrival: EMS: [facility] ap3 11:33 Acuity: SOL 3 ap3 Triage Assessment: 11:36 General: Appears in no apparent distress. Behavior is calm, cooperative, appropriate ap3 for age. Pain: Complains of pain in abdomen Pain currently is 7 out of 10 on a pain scale. Neuro: Level of Consciousness is awake, alert, obeys commands, Oriented to person, place, time, situation, Appropriate for age Speech is normal. Cardiovascular: Patient's skin is warm and dry. Respiratory: Airway is patent Respiratory effort is even, unlabored, Respiratory pattern is regular, symmetrical. GI: Reports lower abdominal pain, upper abdominal pain, nausea, vomiting. Historical: - Allergies: 11:35 No Known Allergies; ap3 - Home Meds: 11:35 Zoloft Oral [Active]; ap3 - PMHx: 11:35 Anxiety; HYDROCELE; ap3 - Immunization history:: Adult Immunizations unknown. - Infectious Disease History:: Denies. - Social history:: Smoking status: unknown. - Family history:: not pertinent. - Hospitalizations: : No recent hospitalization is reported. Screenin:37 [facility] ED Fall Risk Assessment (Adult) History of falling in the last 3 months, ap3 including since admission No falls in past 3 months (0 pts) Confusion or Disorientation No (0 pts) Intoxicated or Sedated No (0 pts) Impaired Gait No (0 pts) Mobility Assist Device Used No (0 pt) Altered Elimination No (0 pt) Score/Fall Risk Level 0 - 2 = Low Risk Oriented to surroundings, Maintained a safe environment, Educated pt \T\ family on fall prevention, incl call for assistance when getting out of bed, Assessed \T\ reinforced patient's understanding of fall precautions, Hourly rounding (assess needs \T\ fall precautionary measures) done, Used ambulatory aids as needed (educated on \T\ assisted with), Used gait belt as appropriate. Abuse screen: Denies threats or abuse. Nutritional screening: No deficits noted. Tuberculosis screening: No symptoms or risk factors identified. Vital Signs: 11:33 BP 110 / 81; Pulse 106; Resp 18; Temp 102.1; Pulse Ox 99% on R/A; Weight 68.04 kg; ap3 Height 5 ft. 11 in. ; Pain 7/10; 12:11 BP 115 / 80; Pulse 84; Resp 18; Pulse Ox 100% on R/A; ap3 13:14 BP 126 / 70; Pulse 74; Resp 18; Pulse Ox 98% on R/A; ap3 13:22 Temp 99.6(O); ap3 11:33 Body Mass Index 20.92 (68.04 kg, 180.34 cm) ap3 11:33 Pain Scale: Adult ap3 ED Course: 11:33 Patient arrived in ED. rn 11:33 Riccardo Herr MD is Attending Physician. rn 11:33 Maryuri Saldana RN is Primary Nurse. ap3 11:35 Triage completed. ap3 11:37 Arm band placed on right wrist. ap3 11:37 Patient has correct armband on for positive identification. Bed in low position. Call ap3 light in reach. Side rails up X 1. Provided Education on: call light education. Pulse ox on. NIBP on. Door closed. Noise minimized. 12:28 CT Abd/Pelvis - IV Contrast Only In Process Unspecified. EDMS 13:16 US Abdomen Limited In Process Unspecified. EDMS 14:09 No provider procedures requiring assistance completed. IV discontinued, intact, ap3 bleeding controlled, No redness/swelling at site. Pressure dressing applied. Administered Medications: 12:07 Not Given (Patient Refused): [id number] mg IVP once; dilute with 10 mL 0.9% NaCl; ap3 give over 2 minutes 12:07 Drug: Acetaminophen PO 1000 mg PO once Route: PO; ap3 14:09 Follow up: Response: No adverse reaction; Temperature is decreased ap3 12:08 Not Given (Patient Refused): ondansetron 4 mg IVP once; over 2 minutes ap3 12:08 Drug: NS 0.9% IV 1000 ml IV at 1 bolus Per protocol; to be given as a bolus over 60 ap3 minutes Route: IV; Rate: 1 bolus; Site: right forearm; 14:10 Follow up: IV Status: Completed infusion; IV Intake: 1000ml ap3 Medication: 11:37 VIS not applicable for this client. ap3 Intake: 14:10 IV: 1000ml; Total: 1000ml. ap3 Outcome: 13:32 Discharge ordered by . rn 14:09 Discharged to home ambulatory, ap3 14:09 Condition: good 14:09 Discharge instructions given to patient, Instructed on discharge instructions, follow up and referral plans. medication usage, Demonstrated understanding of instructions, follow-up care, medications, Prescriptions given X 2, 14:10 Patient left the ED. ap3 Signatures: Dispatcher [employer] EDKS Riccardo Herr MD MD rn Prokisch, Amanda, RN RN ap3
[2024-02-08 14:46] LABS: Blood Morphology Comment NOT SEEN (NOT SEEN); Platelet Estimate ADEQ; White Blood Cell Scan OK (OK)
[2024-02-08 17:13] VITALS: BP 126/70; O2SAT 98
[2024-02-08 17:14] VITALS: TEMP 99.6
== END 2024-02-08 14:10 | disposition home or self-care (01) ==
LOC: ER 11:32
DX: R50.9 Fever, unspecified (principal); R11.2 Nausea with vomiting, unspecified
CPT/HCPCS: 96361; 85025; 36415; 83690; 80053; 87804 ×2; 74177; 76705; 96360; 99284; Q9967; J2405; J7030

== ENCOUNTER 2024-04-23 20:23 | Emergency (ER) | payer OTHER ==
--- NOTE | 2024-04-23 21:28 | RAD REPORT ---
EXAMINATION: ULTRASOUND DUPLEX OF SCROTUM AND TESTICLES CLINICAL INDICATION: Male, 24 years, SWELLING TECHNIQUE: Duplex scan of the scrotal contents was performed including real-time color and spectral D oppler ultrasonography with arterial inflow and venous outflow. COMPARISON: No prior exam. FINDINGS: RIGHT TESTICLE AND EPIDIDYMIS: The right testicle is normal in size, measuring 5.2 x 3.2 x 3.2 cm. Normal, homogeneous echotexture with no focal lesion seen. Limited visualization right epididymal head. Color Doppler flow in the right testicle is normal. LEFT TESTICLE AND EPIDIDYMIS: The left testicle is normal in size, measuring 4.9 x 3.5 x 3.5 cm. Normal, homogeneous echotexture with no focal lesion seen. The left epididymis is normal. Color Doppler flow in the left testicle is normal. ADDITIONAL FINDINGS: Moderate bilateral hydroceles. IMPRESSION: No evidence of testicular torsion or intratesticular mass. Moderate bilateral hydroceles.
[2024-04-23 22:44] LABS: Calcium Oxalate Crystals- Ur Few /HPF (None Seen); Sqamous Epithelial <5 /HPF (None Seen); Urine Bacteria None Seen /HPF (<20); Urine Bilirubin NEGATIVE (Negative); Urine Blood Negative (Negative); Urine Clarity Clear (Clear); Urine Color Light-Yellow (Yellow); Urine Culture Reflex Order NOT NEEDED; Urine Glucose NEGATIVE (Negative); Urine Ketones NEGATIVE (Negative); Urine Micro Reflex YN NO BILL MICROSCOPIC; Urine Mucus Slight /HPF (None Seen); Urine Nitrite NEGATIVE (Negative); Urine Protein NEGATIVE (Negative); Urine RBC <5 /HPF (None Seen); Urine Urobilinogen Normal (Normal); Urine WBC <5 /HPF (<5)
[2024-04-23 22:57] LABS: Absolute Eosinophils 0.1 K/uL (0-0.5); Absolute Monocytes 0.4 K/uL (0.1-1.3); Basophils % 0.6 % (0-1.3); Eosinophils % 2.1 % (0-4.4); Hematocrit 43.1 % (39.6-49.0); Hemoglobin 14.6 g/dL (13.6-17.9); Lymphocytes % 36.5 % (15.3-44.8); MCH 28.2 pg (27.0-35.0); MCHC 33.8 g/dL (32.0-36.0); MCV 83.3 fL (80-100); MPV 8.1 fL (7.6-11.3); Monocytes % 6.9 % (3.3-12.3); Neutrophils % 53.9 % (41.7-73.7); Nucleated Red Blood Cells % 0.6 % (0-0); Platelets 256 thou/uL (152-406); RBC Red Blood Cell Count 5.17 M/uL (4.33-5.43)
[2024-04-23 22:59] LABS: ALT/SGPT 18 U/L (16-61); Albumin 4.1 g/dL (3.4-5.0); Albumin/Globulin Ratio 1.1 (1.1-1.8); Alkaline Phosphatase 75 U/L (45-117); BUN Blood Urea Nitrogen 10 mg/dL (7-18); Bicarbonate 33 mEq/L (21-32); Bilirubin Total 0.5 mg/dL (0.2-1.0); Globulin 3.8 g/dL (2.3-3.5); Glomerular Filtration Rate 128 ml/min (=/>90); Glucose Level 94 mg/dL (74-106); Lipase 24 U/L (13-75); Protein, Total 7.9 g/dL (6.4-8.2); Sodium Level 140 mEq/L (136-145)
[2024-04-23 23:00] LABS: AST/SGOT < 10 U/L (15-37)
--- NOTE | 2024-04-23 23:44 | RAD REPORT ---
CT ABDOMEN PELVIS WITH IV CONTRAST CLINICAL INDICATION: Right testicle swelling; abdominal pain COMPARISON: CT abdomen and pelvis 02/08/2024 TECHNIQUE: CT images of the abdomen and pelvis obtained following administration of intravenous contr ast. Multiplanar reformats were provided. Dose-optimization techniques such as automated exposure control, iterative reconstruction, and mA and/or kV adjustment for patient size was utilized for this examination. FINDINGS: LOWER CHEST: Unremarkable. LIVER: Unremarkable. BILIARY: Gallbladder is contracted and grossly unremarkable. No biliary ductal dilatation.. PANCREAS: Unremarkable. SPLEEN: Unremarkable. ADRENALS: Unremarkable. KIDNEYS/URETERS: Unremarkable. STOMACH: Unremarkable. BOWEL: Unremarkable. APPENDIX: Normal. MESENTERY/PERITONEUM: Unremarkable. RETROPERITONEUM: No adenopathy. URINARY BLADDER: Unremarkable. REPRODUCTIVE: Unremarkable. VASCULAR: Unremarkable. ABDOMINAL/PELVIC WALL: Large bilateral scrotal hydroceles. BONES: Unremarkable. IMPRESSION: 1. Large bilateral scrotal hydroceles. 2. No acute inflammatory process in the abdomen and pelvis. Electronically signed by: Bernadette Mac MD 04/23/2024 11:39 PM [facility] Due to temporary technical issues with the PACS/[employer] reporting system, reports are being ramon d by the in-house radiologist without review as a courtesy to ensure prompt reporting the interpreting radiologist is fully responsible for the content of the report. Transcribed Date/Time: 04/23/2024 11:43 PM
--- NOTE | 2024-04-23 23:56 | ER ---
Nurse's Notes [facility] Name: Monster Martel Age: 24 yrs Sex: Male : 2000 Arrival Date: 04/23/2024 Time: 20:23 Bed 15 Private MD: Diagnosis: Hydrocele, unspecified-bilateral;Testicular pain, unspecified Presentation: 04/23 20:30 Chief complaint: EMS states: patients has on \T\ off testicular swelling \T\ pain. rg 5 20:30 Coronavirus screen: Client denies travel out of the [place] in the last 14 days. Ebola rg5 Screen: Patient negative for fever greater than or equal to 101.5 degrees Fahrenheit, and additional compatible Ebola Virus Disease symptoms Patient denies exposure to infectious person. Patient denies travel to an Ebola-affected area in the 21 days before illness onset. Initial Sepsis Screen: Does the patient meet any 2 criteria? No. Patient's initial sepsis screen is negative. Does the patient have a suspected source of infection? No. Patient's initial sepsis screen is negative. Risk Assessment: Do you want to hurt yourself or someone else? Patient reports no desire to harm self or others. Onset of symptoms was April 23, 2024. 20:30 Method Of Arrival: EMS: [facility] rg5 20:30 Acuity: SOL 3 rg5 Triage Assessment: 20:30 General: Appears in no apparent distress. Behavior is calm, cooperative, appropriate rg5 for age. Pain: Complains of pain in groin Pain currently is 5 out of 10 on a pain scale. Quality of pain is described as aching, Pain began 2 hours ago. EENT: No signs and/or symptoms were reported regarding the EENT system. Neuro: Level of Consciousness is awake, alert, Oriented to person, place, time. Cardiovascular: Denies chest pain, Capillary refill < 3 seconds Patient's skin is warm and dry. Respiratory: Airway is patent Trachea midline Respiratory effort is even, unlabored, Respiratory pattern is regular, symmetrical. GI: Abdomen is flat, non-distended, Abd is soft and non tender. : No signs and/or symptoms were reported regarding the genitourinary system. Reports Scrotal pain: sudden onset. Derm: Skin is intact, Skin is dry, Skin is normal, Skin temperature is warm. Musculoskeletal: Circulation, motion, and sensation intact. Range of motion: intact in all extremities. Historical: - Allergies: 20:30 No Known Allergies; rg5 - PMHx: 20:30 Anxiety; HYDROCELE; rg5 - Immunization history:: Adult Immunizations up to date. - Infectious Disease History:: Denies. - Social history:: Smoking status: Patient denies any tobacco usage or history of. Screenin:30 [facility] ED Fall Risk Assessment (Adult) History of falling in the last 3 months, rg5 including since admission No falls in past 3 months (0 pts) Confusion or Disorientation No (0 pts) Intoxicated or Sedated No (0 pts) Impaired Gait No (0 pts) Mobility Assist Device Used No (0 pt) Altered Elimination No (0 pt) Score/Fall Risk Level 0 - 2 = Low Risk Oriented to surroundings, Maintained a safe environment, Hourly rounding (assess needs \T\ fall precautionary measures) done. Abuse screen: Denies threats or abuse. Nutritional screening: No deficits noted. Tuberculosis screening: No symptoms or risk factors identified. Assessment: 20:30 Reassessment: see triage assessment. rg5 20:30 Pain: Complains of pain in groin Quality of pain is described as aching, Pain began 2 rg5 hours ago. 21:19 Reassessment: No changes from previously documented assessment. Patient and/or family rg5 updated on plan of care and expected duration. Pain level reassessed. Patient is alert, oriented x 3, equal unlabored respirations, skin warm/dry/pink. 22:00 Reassessment: No changes from previously documented assessment. Patient and/or family rg5 updated on plan of care and expected duration. Pain level reassessed. Patient is alert, oriented x 3, equal unlabored respirations, skin warm/dry/pink. 23:00 Reassessment: Patient and/or family updated on plan of care and expected duration. Pain rg5 level reassessed. Patient is alert, oriented x 3, equal unlabored respirations, skin warm/dry/pink. Vital Signs: 20:30 BP 129 / 86; Pulse 64; Resp 17; Temp 98.2(O); Pulse Ox 100% on R/A; Weight 68.04 kg; rg5 Height 5 ft. 11 in. ; Pain 5/10; 22:00 BP 119 / 66; Pulse 74; Resp 17; Pulse Ox 98% on R/A; Pain 0/10; rg5 23:30 BP 117 / 64; Pulse 65; Resp 17; Pulse Ox 98% on R/A; Pain 0/10; rg5 20:30 Body Mass Index 20.92 (68.04 kg, 180.34 cm) rg5 20:30 Pain Scale: Adult rg5 22:00 Pain Scale: Adult rg5 23:30 Pain Scale: Adult rg5 ED Course: 20:29 Patient arrived in ED. rv1 20:30 Arm band placed on right wrist. rg5 20:30 Patient has correct armband on for positive identification. Placed in gown. Bed in low rg5 position. Call light in reach. Side rails up X 1. Door closed. Noise minimized. Warm blanket given. Verbal reassurance given. 20:30 No provider procedures requiring assistance completed. Inserted saline lock: 20 gauge rg5 in right antecubital area, using aseptic technique. Blood collected. Flushed with 10 mL NS. Patient maintains SpO2 saturation greater than 95% on room air. 20:39 Basilio Mcguire PA is PHCP. cp 20:39 Basilio Fierro MD is Attending Physician. cp 21:06 Braden Lainez RN is Primary Nurse. rg5 21:22 US Scrotum Testicles In Process Unspecified. EDMS 22:05 Triage completed. rg5 23:13 CT Abd/Pelvis - IV Contrast Only In Process Unspecified. EDMS 23:55 True Fields MD is Referral Physician. cp 02 00:26 Provided Education on: post er care. rg5 00:26 IV discontinued, bleeding controlled, No redness/swelling at site. Pressure dressing rg5 applied. Administered Medications: No medications were administered Medication: 04/23 20:30 VIS not applicable for this client. rg5 Outcome: 23:56 Discharge ordered by . cp 04/24 00:26 Discharged to home ambulatory, rg5 Condition: stable Discharge instructions given to patient, Instructed on discharge instructions, Demonstrated understanding of instructions, follow-up care, Prescriptions given X 1, 00:27 Patient left the ED. rg5 Signatures: Dispatcher [employer] EDOR Basilio Mcguire PA PA Dorinda Willingham rv1 Braden Lainez, OLIVER RN rg5
--- NOTE | 2024-04-23 23:56 | EDPHYS ---
Physician Documentation [facility] Name: Monster Martel Age: 24 yrs Sex: Male : 2000 Arrival Date: 04/23/2024 Time: 20:23 Bed 15 Private MD: ED Physician Basilio Fierro HPI: 04/23 20:45 This 24 yrs old Male presents to ER via EMS with complaints of Testicular Pain. cp 20:45 The patient presents with scrotal pain, of both sides, with swelling. Onset: The cp symptoms/episode began/occurred intermittent for years with pain worse today. 20:45 Associated signs and symptoms: Pertinent positives: abdominal pain, Pertinent cp negatives: diarrhea, dysuria, fever, vomiting. Severity of symptoms: in the emergency department the symptoms are unchanged, despite home interventions. Historical: - Allergies: 20:30 No Known Allergies; rg5 - PMHx: 20:30 Anxiety; HYDROCELE; rg5 - Immunization history:: Adult Immunizations up to date. - Infectious Disease History:: Denies. - Social history:: Smoking status: Patient denies any tobacco usage or history of. ROS: 20:50 Constitutional: Negative for body aches, chills, fever, poor PO intake, cp 20:50 Eyes: Negative for injury, pain, redness, and discharge, cp 20:50 ENT: Negative for drainage from ear(s), ear pain, sore throat, difficulty swallowing, difficulty handling secretions, 20:50 Cardiovascular: Negative for chest pain, palpitations, 20:50 Respiratory: Negative for cough, shortness of breath, wheezing, 20:50 Abdomen/GI: Positive for abdominal pain, Negative for nausea, vomiting, and diarrhea, constipation, black/tarry stool, rectal bleeding, 20:50 Back: Negative for pain at rest, pain with movement, 20:50 : Positive for testicular pain scrotal swelling, Negative for urinary symptoms, hematuria, penile discharge, 20:50 Skin: Negative for cellulitis, rash, 20:50 Neuro: Negative for altered mental status, dizziness, headache, weakness, 20:50 All other systems are negative, Exam: 20:55 Constitutional: The patient appears in no acute distress, alert, awake, non-toxic, well cp developed, well nourished, 20:55 Head/Face: Normocephalic, atraumatic. cp 20:55 Eyes: Periorbital structures: appear normal, Conjunctiva: normal, no exudate, no injection, Sclera: no appreciated abnormality, Lids and lashes: appear normal, bilaterally, 20:55 ENT: External ear(s): are unremarkable, Nose: is normal, Mouth: Lips: moist, Oral mucosa: moist, Posterior pharynx: Airway: no evidence of obstruction, patent, 20:55 Neck: ROM/movement: is normal, is supple, without pain, no range of motions limitations, 20:55 Chest/axilla: Inspection: normal, 20:55 Cardiovascular: Rate: normal, Rhythm: regular, Edema: is not appreciated, 20:55 Respiratory: the patient does not display signs of respiratory distress, Respirations: normal, no use of accessory muscles, no retractions, labored breathing, is not present, Breath sounds: are clear throughout, no decreased breath sounds, 20:55 Abdomen/GI: Inspection: abdomen appears normal, Bowel sounds: active, all quadrants, Palpation: soft, in all quadrants, mild abdominal tenderness, in the right lower quadrant and left lower quadrant, rebound tenderness, is not appreciated, involuntary guarding, is not appreciated, 20:55 Back: CVA tenderness, is absent, 20:55 : Male external genitalia: swelling: of the scrotum is noted, scrotal, tenderness, of the scrotum is noted, that is mild, Vital Signs: 20:30 BP 129 / 86; Pulse 64; Resp 17; Temp 98.2(O); Pulse Ox 100% on R/A; Weight 68.04 kg; rg5 Height 5 ft. 11 in. ; Pain 5/10; 22:00 BP 119 / 66; Pulse 74; Resp 17; Pulse Ox 98% on R/A; Pain 0/10; rg5 23:30 BP 117 / 64; Pulse 65; Resp 17; Pulse Ox 98% on R/A; Pain 0/10; rg5 20:30 Body Mass Index 20.92 (68.04 kg, 180.34 cm) rg5 20:30 Pain Scale: Adult rg5 22:00 Pain Scale: Adult rg5 23:30 Pain Scale: Adult rg5 MDM: 20:39 Medical Screening Exam initiated cp 22:00 Differential diagnosis: nonspecific abdominal pain, UTI, testicular torsion, cp epididymitis, scrotal abscess, cellulitis. 23:55 Data reviewed: vital signs, nurses notes, lab test result(s), radiologic studies, CT cp scan, ultrasound, and as a result, I will discharge patient. 23:55 Counseling: I had a detailed discussion with the patient and/or guardian regarding the cp historical points, exam findings, and any diagnostic results supporting the discharge/admit diagnosis, lab results, radiology results, the need for outpatient follow up, for definitive care, a urologist, to return to the emergency department if symptoms worsen or persist or if there are any questions or concerns that arise at home. 23:55 Response to treatment: the patient's symptoms have mildly improved after treatment, and cp as a result, I will discharge patient. Special discussion: Based on the patient's Hx, exam, and Dx evaluation, there is no indication for emergent surgery or inpatient Tx. It is understood by the patient/guardian that if the Sx's persist or worsen they need to return immediately for re-evaluation. 04/23 20:44 Order name: Urinalysis W/Microscopic; Complete Time: 23:03 cp 04/23 23:03 Interpretation: Reviewed. 04/23 20:53 Order name: CBC with Diff; Complete Time: 23:03 cp 04/23 23:04 Interpretation: Reviewed. 04/23 20:53 Order name: CMP; Complete Time: 23:03 cp 04/23 23:03 Interpretation: Normal except: CO2 33; AST < 10; GLOB 3.8. cp 04/23 20:53 Order name: Lipase; Complete Time: 23:03 cp 04/23 23:04 Interpretation: Reviewed. 04/23 20:44 Order name: US Scrotum Testicles; Complete Time: 21:39 cp 04/23 21:40 Interpretation: Report reviewed. 04/23 20:53 Order name: CT Abd/Pelvis - IV Contrast Only cp 04/23 23:49 Interpretation: Report reviewed. 04/23 20:53 Order name: IV Saline Lock; Complete Time: 22:00 cp 04/23 20:53 Order name: Labs collected and sent; Complete Time: 22:01 cp Administered Medications: No medications were administered Disposition Summary: 04/23/24 23:56 Discharge Ordered Notes: Location: Home cp Problem: an ongoing problem cp Symptoms: have improved cp Condition: Stable cp Diagnosis - Hydrocele, unspecified - bilateral cp - Testicular pain, unspecified cp Followup: cp - With: True Fields MD - When: 1 week - Reason: Recheck today's complaints Discharge Instructions: - Discharge Summary Sheet cp - Testicular Self-Exam cp - Hydrocele, Adult cp - Hydrocelectomy, Adult cp Forms: - Medication Reconciliation Form cp - Antibiotic Education cp - Prescription Opioid Use cp - Patient Portal Instructions cp - Leadership Thank You Letter cp Prescriptions: - Ibuprofen 800 mg Oral Tablet - take 1 tablet ORAL route every 8 hours As needed take with food; 30 tablet; cp Refills: 0, Product Selection Permitted Signatures: Dispatcher [employer] EDMS Basilio Mcguire PA PA cp Gallardo, Rommel, RN RN rg5 Corrections: (The following items were deleted from the chart) 20:53 20:53 CBC+H.LAB.BRZ ordered. EDMS EDMS 20:53 20:53 COMPREHENSIVE METABOLIC PANEL+C.LAB.BRZ ordered. EDMS EDMS 20:53 20:53 LIPASE+C.LAB.BRZ ordered. EDMS EDMS 20:53 20:53 Abdomen Pelvis W Con+CT.RAD.BRZ ordered. EDMS EDMS 23:55 23:51 This 24 yrs old Male presents to ER via EMS with complaints of Testicular Pain. cpcp
[2024-04-24 00:31] VITALS: TEMP 98.2
[2024-04-24 00:32] VITALS: O2SAT 98
[2024-04-24 00:33] VITALS: BP 117/64
== END 2024-04-24 00:27 | disposition home or self-care (01) ==
LOC: ER 20:23
DX: N43.3 Hydrocele, unspecified (principal); N50.811 Right testicular pain
CPT/HCPCS: 85025; 81001; 36415; 83690; 80053; 74177; 76870; 99284; Q9967

== ENCOUNTER 2024-05-22 19:42 | Emergency (ER) | payer MEDICAID ==
--- NOTE | 2024-05-22 20:32 | RAD REPORT ---
Procedure: Chest Single View HISTORY: Hemoptysis COMPARISON: none FINDINGS: The lungs appear clear of acute infiltrate. No significant pleural effusion noted. The heart is normal size. IMPRESSION: No acute abnormality is displayed.
--- NOTE | 2024-05-22 20:37 | ER ---
Nurse's Notes 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 Coronavirus hb screen: At this time, the client does not indicate any symptoms associated with coronavirus-19. Ebola Screen: No symptoms or risks identified at this time. Initial Sepsis Screen: Does the patient meet any 2 criteria? No. Patient's initial sepsis screen is negative. Does the patient have a suspected source of infection? No. Patient's initial sepsis screen is negative. Risk Assessment: Do you want to hurt yourself or someone else? Patient reports no desire to harm self or others. Onset of symptoms was May 22, 2024. 19:54 Method Of Arrival: EMS: [facility] hb 19:54 Acuity: SOL 4 hb Historical: - Allergies: 19:55 No Known Allergies; hb - Home Meds: 19:55 None [Active]; hb - PMHx: 19:55 Anxiety; HYDROCELE; hb - PSHx: 19:55 None; hb - Immunization history:: Adult Immunizations up to date. - Infectious Disease History:: Denies. - Social history:: Smoking status: Patient denies any tobacco usage or history of. Vital Signs: 19:54 BP 119 / 74; Pulse 63; Resp 16; Temp 98.1(O); Pulse Ox 100% on R/A; Weight 68.04 kg; hb Height 5 ft. 11 in. ; Pain 0/10; 19:54 Body Mass Index 20.92 (68.04 kg, 180.34 cm) hb 19:54 Pain Scale: Adult hb ED Course: 19:44 Patient arrived in ED. mr 19:48 Argelia Booth FNP-C is PHCP. kb 19:48 Basilio Fierro MD is Attending Physician. kb 19:55 Triage completed. hb 19:56 Arm band placed on. hb 19:56 Group A Streptococcus Rapid Sent. hb 20:11 Chest Single View XRAY In Process Unspecified. EDMS Administered Medications: No medications were administered Outcome: 20:36 Discharge ordered by . kb 21:26 Patient left the ED. hb Signatures: Dispatcher [employer] EDMS Argelia Booth, VICTOR HUGO-C VICTOR HUGO-Ayah Guerrier, Reg Reg Shraddha Stuart, RN RN hb
--- NOTE | 2024-05-22 20:37 | EDPHYS ---
Physician Documentation [facility] Name: Monster Martel Age: 24 yrs Sex: Male : 2000 Arrival Date: 05/22/2024 Time: 19:42 Bed IW1 Private MD: ED Physician Basilio Fierro HPI: 05/22 19:52 This 24 yrs old Male presents to ER via Unassigned with complaints of Spitting up blood.kb 19:52 Pt is a 24 year old male who presents for spitting up "little specs of blood" that kb started 30 minutes ago. Denies cough, congestion, nosebleed, shortness of breath, or other symptoms. Concerned about lung CA. Historical: - Allergies: 19:55 No Known Allergies; hb - Home Meds: 19:55 None [Active]; hb - PMHx: 19:55 Anxiety; HYDROCELE; hb - PSHx: 19:55 None; hb - Immunization history:: Adult Immunizations up to date. - Infectious Disease History:: Denies. - Social history:: Smoking status: Patient denies any tobacco usage or history of. ROS: 19:52 Constitutional: As per HPI kb Exam: 19:52 Constitutional: This is a well developed, well nourished patient who is awake, alert, kb and in no acute distress. Head/Face: Normocephalic, atraumatic. ENT: Moist Mucous membranes Cardiovascular: Regular rate Respiratory: Respirations even and unlabored. No increased work of breathing. Talking in full sentences Skin: Warm, dry with normal turgor. Normal color. MS/ Extremity: Pulses equal, no cyanosis. Neurovascular intact. Full, normal range of motion. Neuro: Awake and alert, GCS 15, oriented to person, place, time, and situation. Vital Signs: 19:54 BP 119 / 74; Pulse 63; Resp 16; Temp 98.1(O); Pulse Ox 100% on R/A; Weight 68.04 kg; hb Height 5 ft. 11 in. ; Pain 0/10; 19:54 Body Mass Index 20.92 (68.04 kg, 180.34 cm) hb 19:54 Pain Scale: Adult hb MDM: 19:48 Medical Screening Exam initiated kb 19:53 Data reviewed: vital signs, nurses notes. kb 20:35 Differential diagnosis: strep, pharyngitis, lung CA. Counseling: I had a detailed kb discussion with the patient and/or guardian regarding the historical points, exam findings, and any diagnostic results supporting the discharge/admit diagnosis, lab results, radiology results, the need for outpatient follow up, a family practitioner, to return to the emergency department if symptoms worsen or persist or if there are any questions or concerns that arise at home. 05/22 19:55 Order name: Group A Streptococcus Rapid; Complete Time: 20:28 kb 05/22 20:31 Order name: Throat Culture [facility] 05/22 19:53 Order name: Chest Single View XRAY; Complete Time: 20:34 kb Administered Medications: No medications were administered Disposition Summary: 05/22/24 20:36 Discharge Ordered Notes: Location: Home kb Condition: Stable kb Diagnosis - Person with feared health complaint in whom no diagnosis is made kb Followup: kb - With: Emergency Department - When: As needed - Reason: Worsening of condition Followup: kb - With: Private Physician - When: 2 - 3 days - Reason: Recheck today's complaints, Continuance of care, Re-evaluation by your physician Discharge Instructions: - Discharge Summary Sheet kb - Hemoptysis, [id number] kb Forms: - Medication Reconciliation Form kb - Antibiotic Education kb - Prescription Opioid Use kb - Patient Portal Instructions kb - Leadership Thank You Letter kb Signatures: Dispatcher [employer] Argelia Rhodes, GUIDEMAN-C GUIDEMAN-Shraddha Amor, RN RN
[2024-05-22 21:39] VITALS: BP 119/74; TEMP 98.1; O2SAT 100
== END 2024-05-22 21:26 | disposition home or self-care (01) ==
LOC: ER 19:42
DX: Z71.1 Person with feared health complaint in whom no diagnosis is made (principal)
CPT/HCPCS: 36415; 71045; 87070; 99283